=== PATIENT | male | born 1965 | race Caucasian/White ===

== ENCOUNTER 2022-03-18 11:03 | Inpatient (IN) | payer OTHER ==
[2022-03-18] MEDS ORDERED: dilTIAZem HCL 50 MG/10 ML - 10 ML VIAL IVPUSH ONE ×4 (11:20→23:03)
[2022-03-18] MEDS ORDERED: SODIUM CHLORIDE 0.9% 500 ML INFUS.BAG IV ONE (11:22)
[2022-03-18] MEDS ORDERED: dilTIAZem HCL 50 MG/10 ML - 10 ML VIAL ONE ×2 (11:28→23:06)
[2022-03-18] MEDS ORDERED: dilTIAZem HCL 125 MG/25 ML - 25 ML VIAL ONE (11:32)
[2022-03-18 12:15] LABS: BASO % 0.6 % (0-2.0); EOS % 0.8 % (0-4.5); HEMOGLOBIN 15.4 GM/dL (11.7-16.9); LYMPH % 27.7 % (8-40); MCH 31.5 pg (25.7-33.7); MCHC 33.5 g/dl (32.0-35.9); MEAN PLT VOLUME 10.5 fl (7.5-11.1); NEUT % 63.9 % (42.8-82.8); PLATELET COUNT 228 10^3/uL (134-434); RBC 4.89 M/mm3 (4.00-5.60); RDW 13.7 % (11.9-15.9); WHITE BLOOD COUNT 9.8 K/mm3 (4.0-10.0)
[2022-03-18] MEDS ORDERED: dilTIAZem HCL 30 MG TABLET PO ONE (12:28)
[2022-03-18 12:42] LABS: CALCIUM 9.1 mg/dL (8.5-10.1)
[2022-03-18 12:43] LABS: ALBUMIN 3.7 g/dl (3.4-5.0); BLOOD UREA NITROGEN 19.7 mg/dL (7-18); MAGNESIUM 2.4 mg/dL (1.8-2.4)
[2022-03-18 12:46] LABS: CREATININE 1.2 mg/dL (0.55-1.3); PHOSPHOROUS 3.9 mg/dL (2.5-4.9)
[2022-03-18] MEDS ORDERED: dilTIAZem HCL 30 MG TABLET ONE ×2 (12:48→21:42)
[2022-03-18 12:49] LABS: BILIRUBIN,TOTAL 4.3 mg/dL (0.2-1); TOT PROT 7.1 g/dl (6.4-8.2)
[2022-03-18] MEDS ORDERED: metoPROLOL SUCCINATE 25 MG TAB.SR.24H (FP) PO SCH (17:30)
[2022-03-18] MEDS ORDERED: metoPROLOL SUCCINATE 25 MG TAB.SR.24H (FP) ONE (17:37)
[2022-03-18] MEDS: dilTIAZem HCL 30 MG TABLET PO SCH (21:45)
[2022-03-18] MEDS ORDERED: APIXABAN 5 MG TABLET ONE (21:46)
[2022-03-18] MEDS: APIXABAN 5 MG TABLET PO SCH (21:47)
[2022-03-19] MEDS ORDERED: dilTIAZem HCL 30 MG TABLET ONE (05:12)
[2022-03-19] MEDS: dilTIAZem HCL 30 MG TABLET PO SCH (05:50)
[2022-03-19] MEDS ORDERED: FUROSEMIDE 40 MG/4 ML INJECTABLE VIAL ONE (07:42)
[2022-03-19] MEDS ORDERED: METOPROLOL TARTRATE 25 MG TABLET (FP) ONE (07:42)
[2022-03-19] MEDS ORDERED: dilTIAZem HCL 125 MG/25 ML - 25 ML VIAL ONE (07:43)
[2022-03-19] MEDS ORDERED: FUROSEMIDE 40 MG/4 ML INJECTABLE VIAL IVPUSH ONE (07:45)
[2022-03-19] MEDS ORDERED: dilTIAZem HCL 50 MG/10 ML - 10 ML VIAL IVPUSH ONE (07:45)
[2022-03-19] MEDS: METOPROLOL TARTRATE 25 MG TABLET (FP) PO SCH ×3 (07:54→21:27)
[2022-03-19 09:18] LABS: ALBUMIN 3.5 g/dl (3.4-5.0); CALCIUM 8.7 mg/dL (8.5-10.1)
[2022-03-19 09:19] LABS: BLOOD UREA NITROGEN 20.1 mg/dL (7-18)
[2022-03-19 09:21] LABS: BILIRUBIN,DIRECT 0.9 mg/dL (0.0-0.2); CREATININE 1.1 mg/dL (0.55-1.3)
[2022-03-19 09:23] LABS: BILIRUBIN,TOTAL 4.1 mg/dL (0.2-1); TOT PROT 6.6 g/dl (6.4-8.2)
[2022-03-19 09:24] LABS: N-TERMINAL BNP 1517.6 pg/ml (5-125)
[2022-03-19] MEDS ORDERED: VALSARTAN 40 MG TABLET PO SCH (10:00)
[2022-03-19 10:35] LABS: HEMATOCRIT 46.1 % (35.4-49); MCH 30.2 pg (25.7-33.7); MCHC 32.5 g/dl (32.0-35.9); MEAN CELL VOLUME 92.9 fl (80-96); MEAN PLT VOLUME 10.5 fl (7.5-11.1); PLATELET COUNT 228 10^3/uL (134-434); RBC 4.96 M/mm3 (4.00-5.60); RDW 13.9 % (11.9-15.9)
[2022-03-19 11:36] LABS: MAGNESIUM 2.3 mg/dL (1.8-2.4)
[2022-03-19 11:39] LABS: PHOSPHOROUS 3.6 mg/dL (2.5-4.9)
[2022-03-19] MEDS ORDERED: APIXABAN 5 MG TABLET ONE (11:49)
[2022-03-19] MEDS ORDERED: VALSARTAN 80 MG TABLET ONE (11:49)
[2022-03-19] MEDS: APIXABAN 5 MG TABLET PO SCH ×2 (11:55→21:27)
[2022-03-19 15:54] VITALS: BMI 35.2
[2022-03-19] MEDS: SACUBITRIL/VALSARTAN 24 MG-26 MG TABLET PO SCH (21:27)
[2022-03-19] MEDS ORDERED: MUPIROCIN 2% TOPICAL OINTMENT FOR DECOLONIZATION NS SCH (22:00)
[2022-03-19] MEDS ORDERED: CHLORHEXIDINE GLUCONATE 4% CLEANSER FOR DECOLONIZATION TP SCH (22:00)
[2022-03-20] MEDS: METOPROLOL TARTRATE 25 MG TABLET (FP) PO SCH (05:59)
[2022-03-20] MEDS: APIXABAN 5 MG TABLET PO SCH ×2 (09:34→21:03)
[2022-03-20] MEDS: SACUBITRIL/VALSARTAN 24 MG-26 MG TABLET PO SCH ×3 (09:34→21:03)
[2022-03-20] MEDS: SPIRONOLACTONE 25 MG TABLET PO SCH (13:24)
[2022-03-20] MEDS: AMIODARONE HCL 200 MG TABLET PO SCH (21:03)
[2022-03-21 06:50] LABS: HEMATOCRIT 42.4 % (35.4-49); HEMOGLOBIN 14.5 GM/dL (11.7-16.9); MCH 31.7 pg (25.7-33.7); MCHC 34.1 g/dl (32.0-35.9); MEAN CELL VOLUME 92.9 fl (80-96); PLATELET COUNT 193 10^3/uL (134-434); RBC 4.57 M/mm3 (4.00-5.60); RDW 13.7 % (11.9-15.9); WHITE BLOOD COUNT 10.3 K/mm3 (4.0-10.0)
[2022-03-21 07:16] LABS: CALCIUM 8.2 mg/dL (8.5-10.1)
[2022-03-21 07:17] LABS: ALBUMIN 2.9 g/dl (3.4-5.0); BLOOD UREA NITROGEN 10.7 mg/dL (7-18)
[2022-03-21 07:20] LABS: CREATININE 0.9 mg/dL (0.55-1.3)
[2022-03-21 07:22] LABS: BILIRUBIN,TOTAL 2.8 mg/dL (0.2-1)
[2022-03-21 07:44] LABS: HEPATITIS B SURFACE AG MATERN NON-REACTIVE (NONREACTIVE)
[2022-03-21] MEDS: APIXABAN 5 MG TABLET PO SCH ×2 (09:53→21:06)
[2022-03-21] MEDS: SPIRONOLACTONE 25 MG TABLET PO SCH (09:53)
[2022-03-21] MEDS: SACUBITRIL/VALSARTAN 24 MG-26 MG TABLET PO SCH ×2 (09:53→21:06)
[2022-03-21] MEDS: AMIODARONE HCL 200 MG TABLET PO SCH ×2 (09:54→21:06)
[2022-03-22] MEDS: APIXABAN 5 MG TABLET PO SCH ×2 (09:26→21:19)
[2022-03-22] MEDS: SPIRONOLACTONE 25 MG TABLET PO SCH (09:26)
[2022-03-22] MEDS: AMIODARONE HCL 200 MG TABLET PO SCH ×2 (09:26→21:19)
[2022-03-22] MEDS: SACUBITRIL/VALSARTAN 24 MG-26 MG TABLET PO SCH ×2 (09:26→21:19)
[2022-03-23 06:58] LABS: HEMOGLOBIN 14.9 GM/dL (11.7-16.9); MCH 31.5 pg (25.7-33.7); MEAN CELL VOLUME 92.6 fl (80-96); MEAN PLT VOLUME 10.4 fl (7.5-11.1); PLATELET COUNT 219 10^3/uL (134-434); RBC 4.75 M/mm3 (4.00-5.60); RDW 13.7 % (11.9-15.9); WHITE BLOOD COUNT 9.1 K/mm3 (4.0-10.0)
[2022-03-23 07:23] LABS: BLOOD UREA NITROGEN 12.8 mg/dL (7-18); CALCIUM 8.5 mg/dL (8.5-10.1)
[2022-03-23 07:28] LABS: TOT PROT 6.2 g/dl (6.4-8.2)
[2022-03-23] MEDS: SACUBITRIL/VALSARTAN 24 MG-26 MG TABLET PO SCH ×2 (09:33→22:11)
[2022-03-23] MEDS: APIXABAN 5 MG TABLET PO SCH ×2 (09:34→22:12)
[2022-03-23] MEDS: AMIODARONE HCL 200 MG TABLET PO SCH ×2 (09:34→22:11)
[2022-03-23] MEDS: SPIRONOLACTONE 25 MG TABLET PO SCH (09:34)
[2022-03-24] MEDS: SPIRONOLACTONE 25 MG TABLET PO SCH (10:00)
[2022-03-24] MEDS: AMIODARONE HCL 200 MG TABLET PO SCH ×2 (10:00→21:44)
[2022-03-24] MEDS: SACUBITRIL/VALSARTAN 24 MG-26 MG TABLET PO SCH ×2 (10:00→21:44)
[2022-03-24] MEDS: APIXABAN 5 MG TABLET PO SCH ×2 (10:00→21:44)
[2022-03-25] MEDS: AMIODARONE HCL 200 MG TABLET PO SCH ×2 (09:36→21:42)
[2022-03-25] MEDS: SPIRONOLACTONE 25 MG TABLET PO SCH (09:36)
[2022-03-25] MEDS: SACUBITRIL/VALSARTAN 24 MG-26 MG TABLET PO SCH ×2 (09:36→21:42)
[2022-03-25] MEDS: APIXABAN 5 MG TABLET PO SCH ×2 (09:37→21:42)
[2022-03-25] MEDS ORDERED: LIDOCAINE VISCOUS 2% ORAL/TOP 15 ML UNIT-DOSE CUP ONE (12:56)
[2022-03-25] MEDS ORDERED: MIDAZOLAM HCL 2 MG/2 ML SINGLE DOSE VIAL ONE (13:31)
[2022-03-25] MEDS ORDERED: LIDOCAINE VISCOUS 2% ORAL/TOP 15 ML UNIT-DOSE CUP MM ONE (13:35)
[2022-03-26] MEDS ORDERED: LIDOCAINE HCL 2% JELLY (30 ML/TUBE) TP PRN (04:01)
[2022-03-26 06:52] LABS: HEMATOCRIT 44.1 % (35.4-49); HEMOGLOBIN 14.9 GM/dL (11.7-16.9); MCH 31.4 pg (25.7-33.7); MCHC 33.9 g/dl (32.0-35.9); MEAN CELL VOLUME 92.8 fl (80-96); MEAN PLT VOLUME 10.2 fl (7.5-11.1); PLATELET COUNT 233 10^3/uL (134-434); RBC 4.76 M/mm3 (4.00-5.60); RDW 13.6 % (11.9-15.9); WHITE BLOOD COUNT 8.6 K/mm3 (4.0-10.0)
[2022-03-26 07:15] LABS: BLOOD UREA NITROGEN 16.7 mg/dL (7-18); CALCIUM 9.2 mg/dL (8.5-10.1)
[2022-03-26 07:19] LABS: CREATININE 1.2 mg/dL (0.55-1.3)
[2022-03-26 07:20] LABS: BILIRUBIN,TOTAL 2.8 mg/dL (0.2-1); TOT PROT 6.8 g/dl (6.4-8.2)
[2022-03-26 07:22] LABS: ALBUMIN 3.6 g/dl (3.4-5.0)
[2022-03-26 07:54] VITALS: BP 98/73; PULSE 74; TEMP 98
[2022-03-26] MEDS: APIXABAN 5 MG TABLET PO SCH (09:20)
[2022-03-26] MEDS: SACUBITRIL/VALSARTAN 24 MG-26 MG TABLET PO SCH (09:20)
[2022-03-26] MEDS: SPIRONOLACTONE 25 MG TABLET PO SCH (09:20)
[2022-03-26] MEDS: AMIODARONE HCL 200 MG TABLET PO SCH (09:20)
== END 2022-03-26 13:18 | disposition home or self-care (01) | DRG 194 ==
LOC: JER 11:03 → JERBED 14:16 → J4W 03-19 14:16
PROVIDERS: ADMIT Internal Medicine; ATTEND Internal Medicine
PROC: B246ZZ4 Ultrasonography of Right and Left Heart, Transesophageal (ICD-10-PCS; principal; 2022-03-25 13:30)
DX: I11.0 Hypertensive heart disease with heart failure (principal); I48.19 Other persistent atrial fibrillation; I42.8 Other cardiomyopathies; R17 Unspecified jaundice; R00.0 Tachycardia, unspecified; R06.09 Other forms of dyspnea; I50.21 Acute systolic (congestive) heart failure; E66.9 Obesity, unspecified; Z68.35 Body mass index [BMI] 35.0-35.9, adult
CPT/HCPCS: 0241U-QW; 36415; 71045-TC-FY; 76700-TC; 80053; 80061; 80076; 82977; 83036; 83516; 83735; 83880; 84100; 84439; 84443; 84481; 84484; 85025; 85027; 86038; 86708; 87340; 87517; 87522; 93005; 93010; 93306-TC; 93312; 93325; 99285-25